=== PATIENT | female | born 1975 | race Caucasian/White ===

== ENCOUNTER 2020-03-18 20:40 | Emergency (ER) | payer MEDICAID, SELFPAY ==
[2020-03-18] VITALS (10 sets, daily range): BP systolic 125–158; BP diastolic 74–92; PULSE 96–109; RESP 16; TEMP 36.7; O2SAT 93–96
[2020-03-18 21:05] LABS: Bilirubin Negative (Negative); Blood Large (Negative); Clarity Sl Cloudy (Clear); Glucose >=1000 mg/dL (Negative); Ketones Negative (Negative); Leukocyte Esterase Negative (Negative); Nitrite Negative (Negative); Urobilinogen 0.2 EU/dL (Up TO 0.2); pH 5.5 (5-8)
[2020-03-18] MEDS: Normal Saline 1,000 ML 1000 ML IV (21:13)
[2020-03-18] MEDS: Ketorolac 30 MG/ML VIAL IVP (21:13)
[2020-03-18 21:17] LABS: Bacteria Negative HPF (Negative); C & S Indicated? No; Casts Negative LPF (Negative); Crystals Negative HPF (Negative); Epithelial Cells Rare HPF (Negative); Mucus Negative (Negative); RBC >50 HPF (0-2)
--- NOTE | 2020-03-18 21:19 | ED.GENADUL_ITS ---
Discharge Plan Disposition Patient Disposition: HOME Condition: Stable Discharge Details Chief Complaint: Urinary Clinical Impression: Mass of small intestine, Right kidney stone Primary Care Provider: Luisito Meadows ED Provider: Nico Tello Home Meds and New Rx's Prescriptions: New tamsulosin [Flomax] 0.4 mg capsule 0.4 mg PO DAILY 7 Days Qty: 7 RF: 0 Continued gabapentin 600 mg Tablet 600 mg PO BID RF: 0 simvastatin 10 mg Tablet 10 mg PO DAILY RF: 0 aspirin [Aspirin Low Dose] 81 mg Tablet,Delayed Release (Dr/Ec) 81 mg PO DAILY RF: 0 lisinopril 5 mg Tablet 5 mg PO DAILY RF: 0 metformin 500 mg Tablet Extended Release 24 Hr 500 mg PO BID RF: 0 Discharge Instructions Instructions: Kidney Stones (ED) Additional Instructions: At this time you have a large kidney stone. There is no signs of infection, your pain appears to be well controlled, your labs are very encouraging. However due to the size of the kidney stone it may not pass on its own. Please follow-up closely with urology. Please take Tylenol and Motrin as needed for pain. Please take the Flomax as directed to help the kidney stone pass. You also have evidence of a small mass in your small intestines. There is a chance that this is cancer. It is important that you follow-up very closely with surgery. Please contact Dr. Coto's office in the morning to discuss this follow-up date. If you notice any worsening of your symptoms, or any new symptoms such as vomiting, diarrhea, fever, chills, shortness of breath, chest pain, numbness, weakness, or fainting , please return immediately to the emergency department for reevaluation. Please follow up with your primary care provider as soon as possible for reassessment and reevaluation. As always, it was a pleasure participating in your medical care today. It is extremely important that you follow-up with Dr. Coto at the office here at the hospital at 9am on Monday the . DO NOT MISS THIS APPOINTMENT. Referrals: Blane Monique MD [ [facility] STAFF PHYSICIAN] - Leah Coto DO [OSTEOPATHIC DOCTOR] - Discharge Data Discharge Date/Time-TO BE ENTERED AT DEPARTURE: 03/18/20 23:32 Medical Decision Making 45-year-old female with a past medical history of ectopic , cholecystectomy, type 2 diabetes on metformin, who presents today for evaluation of left-sided flank pain, epigastric bloating, and hematuria. Symptoms have been present for the last 2 days. She denies any chest pain or shortness of b reath. She denies any history of kidney stones. She denies any fever, chills, or dysuria. She does admit to increased urinary frequency. is at bedside who is the medical decision maker, and provides an extensive component of her history. Patient denies any other complaints at this time. She denies any tearing or ripping sensation. states that he would like aneurysm to be ruled out. Patient and have no other complaints or requests at this time. She denies any vaginal discharge. Physical exam is relatively unremarkable, mild left-sided CVA tenderness, no abdominal pain on palpation. Differential is highest for kidney stone. Less likely pyelonephritis or UTI. Unlikely to be a AAA, however per family request we will perform further evaluation for this as well. CT scan will be ordered as it is to evaluate for kidney stone, which will evaluate for any aortic etiology. We will treat the patient's pain, monitor closely and reassess. 11:[address] imaging has returned, patient demonstrates a 12 to 13 mm irregular calcified stone seen at the level of the right renal pelvic junction. Mild prominence of the right renal pelvis, no severe hydronephrosis. Urinalysis shows evidence of hematuria but no evidence of infection. No elevation in white count, bandemia or left shift. Renal function otherwise stable. Patient's pain is notably well controlled, she has no additional pain symptoms. In addition to this there is evidence of abnormal dilatation of mucosal thickening involves the third portion of the duodenum with an apparent intramural mucosal mass identified. Concern for this mass. Did contact Dr. Coto of surgery, she reviewed the images. She recommends close follow-up on Monday for prompt reassessment. And suspected EGD on Monday. The patient and her currently do not have a phone, however I went over in significant detail this appointment time at 9 AM, as well as the location of the office, and the critical importance of this important follow-up and reassessment. They demonstrate clear understanding. The patient has tolerated p.o. well here, she has no pain and is in no acute distress. With no signs of obstruction or inability to pass food in conjunction with her continued demonstration of regular bowel movements, no blood in her stool, or other components, the patient is stable for discharge. I had a long and thorough discussion with the patient, her , about reasons for which to promptly return, I availability all night long for any over the phone consult, or any questions they might have. Patient will be discharged with close follow-up. We will place a referral also for Dr. Monique for assessment as the stone is large, and the patient may need stent and or radioablation. Discussed red flags which to return. I have extensively reviewed the treatment plan and discharge instructions with the patient. I have addressed all patient concerns at this time. The patient was made aware of what symptoms to monitor for that would warrant a return to the emergency department. Discussed the plan with the patient, they demonstrate verbal understanding and agreement with our assessment and plan at this time. FINDINGS: Lungs: Lung bases are clear and heart size is normal. No pleural or pericardial effusions are detected. Liver: Trnia's lobe with inferior extension of the parenchyma of the right hepatic lobe below the level of the lower pole of the right kidney is an anatomic variation. Hepatic steatosis is noted and no focal liver lesions are detected. Gallbladder and bile ducts: Prior cholecystectomy Pancreas: The Pancreas: Normal. No ductal dilation. Spleen: Normal. No splenomegaly. Adrenals: Normal. No mass. Kidneys and ureters: Kidneys show bilateral excretion of contrast material without renal mass or significant hydronephrosis. There is mild asymmetric prominence of the right renal pelvis and a 12-13 mm irregular calcified stone is seen at the level of the right ureteropelvic junction. No additional renal calculi are detected. The Stomach and bowel: There is abnormal dilatation and mucosal thickening involving the 3rd portion the duodenum with question of a intraluminal mucosal mass (see image 51, series 10). No other pathologically dilated segments of large or small bowel detected. Intraperitoneal space: Unremarkable. No free air. No significant fluid collection. Stomach and bowel: Normal. No obstruction. No mucosal thickening. Intraperitoneal space: Unremarkable. No free air. No significant fluid collection. Lymph nodes: Unremarkable. No enlarged lymph nodes. Vasculature: Unremarkable. No abdominal aortic aneurysm. Bladder: Unremarkable. Reproductive: Unremarkable. Bones/joints: Bridging syndesmophytes are noted along posterior disc space margins at mid to upper lumbar levels with no acute osseous lesions detected. Soft tissues: Unremarkable. IMPRESSION: 1. A 12-13 mm irregular calcified stone is seen at the level of the right ureteropelvic junction associated with mild asymmetric prominence of the right renal pelvis. 2. Abnormal dilatation and mucosal thickening involves the 3rd portion the duodenum with an apparent intraluminal mucosal mass identified as detailed above. Gastroenterology consult is suggested for further evaluation. Thank you for allowing us to participate in the care of your patient. Dictated and Authenticated by: Immanuel Lancaster MD 03/18/2020 10:53 PM Eastern Time ([place] & [place]) HPI General Date/Time Provider Initiated Documentation: 03/18/20 20:44 . HPI Narrative: 45-year-old female with a past medical history of ectopic , cholecystectomy, type 2 diabetes on metformin, who presents today for evaluation of left-sided flank pain, epigastric bloating, and hematuria. Symptoms have been present for the last 2 days. She denies any chest pain or shortness of breath. She denies any history of kidney stones. She denies any fever, chills, or dysuria. She does admit to increased urinary frequency. is at bedside who is the medical decision maker, and provides an extensive component of her history. Patient denies any other complaints at this time. She denies any tearing or ripping sensation. states that he would like aneurysm to be ruled out. Patient and have no other complaints or requests at this time. She denies any vaginal discharge. Related Data Home Medications Medication Instructions Recorded Confirmed aspirin [Aspirin Low Dose] 81 mg PO DAILY 03/18/20 03/18/20 gabapentin 600 mg PO BID 03/18/20 03/18/20 lisinopril 5 mg PO DAILY 03/18/20 03/18/20 metformin 500 mg PO BID 03/18/20 03/18/20 simvastatin 10 mg PO DAILY 03/18/20 03/18/20 tamsulosin [Flomax] 0.4 mg PO DAILY 7 Days #7 cap 03/18/20 Previous Rx's Medication Instructions Recorded tamsulosin [Flomax] 0.4 mg PO DAILY 7 Days #7 cap 03/18/20 Allergies Allergy/AdvReac Type Severity Reaction Status Date / Time insulin lispro AdvReac Diarrhea Unverified 03/18/20 21:23 [From Humalog U-100 Insulin] mushroom AdvReac Diarrhea Unverified 03/18/20 20:47 General Stated Complaint: Urinary MARVEL: 3 Review of Systems All systems reviewed & are unremarkable except as noted in HPI and below PFSH Medical History Diabetes mellitus (Chronic) High cholesterol (Chronic) Surgical History History of cholecystectomy (Chronic) History of tubal ligation (Chronic) Social History Smoking/Tobacco Use Status: Never Alcohol Intake: current Alcohol Intake frequency: holidays/special occasions only Drug use: Rarely Substance use type: marijuana Do you feel safe at home: Yes Do you feel safe in your relationship?: Yes Exam Narrative Exam Narrative: 1.Const: Well-nourished, Well-developed, appearing stated age 2.Eyes: PERRL, no conjunctival injection, and symmetrical lids. 3.ENT: Atraumatic external nose and ears. Moist MM. Neck: Symmetric, trachea midline, No thyromegaly. 4.CVS: +S1/S2, No murmurs or gallops. Peripheral pulses 2+ and equal in all extremities. Brisk capillary refill in all extremities. 5.RESP: Unlabored respiratory effort. Clear to auscultation bilaterally. No wheezes rales or rhonchi 6.GI: Soft, Nontender/Nondistended, no reproducible tenderness in the left upper left lower right upper right lower abdominal quadrants. Mild left CVA tenderness. No pelvic tenderness on palpation. No hepatosplenomegaly. No guarding or rebound. 7.MSK: Normocephalic/Atraumatic, Extremities w/o deformity or ttp No cyanosis or clubbing, Normal movement of all extremities 8.Skin: Warm, Dry. No rashes or lesions. 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 Sensation grossly intact, no focal neurologic deficits. 10.Psych: (AAO) x3. Appropriate mood and affect Course Vital Signs Vital signs: Vital Signs Temperature 36.7 C 03/18/20 20:44 Pulse 109 H 03/18/20 20:44 Respiratory Rate 16 03/18/20 20:44 Blood Pressure 158/88 H 03/18/20 20:44 Pulse Oximetry 96 03/18/20 20:44 Temperature 36.7 C 03/18/20 20:44 Temperature Source Temporal Artery Scan 03/18/20 20:44 Pulse 109 H 03/18/20 20:44 Respiratory Rate 16 03/18/20 20:44 Blood Pressure 158/88 H 03/18/20 20:44 Blood Pressure Position Sitting 03/18/20 20:44 Pulse Oximetry 96 03/18/20 20:44 Oxygen Delivery Method Room Air 03/18/20 20:44 Oxygen Flow Rate 0 03/18/20 20:44 Pain Level 2 03/18/20 21:13 Lab/Test Results Lab/Test Results: Laboratory Tests Range/Units 03/18/20 20:58 Urine Color (Yellow) [place] Urine Clarity (Clear) Sl cloudy Urine pH (5-8) 5.5 Ur Specific [place] (1.005-1.025) 1.010 Urine Protein (Negative) mg/dL Negative Urine Ketones (Negative) mg/dL Negative Urine Blood (Negative) Large H Urine Nitrite (Negative) Negative Urine Bilirubin (Negative) Negative Urine Urobilinogen (Up TO 0.2) EU/dL 0.2 Ur Leukocyte Esterase (Negative) Negative Urine RBC (0-2) HPF >50 H Urine WBC (0-5) HPF 3-5 Ur Epithelial Cells (Negative) HPF Rare Urine Crystals (Negative) HPF Negative Urine Bacteria (Negative) HPF Negative Urine Casts (Negative) LPF Negative Urine Mucus (Negative) Negative Ur Culture Indicated? No Urine Glucose (Negative) mg/dL >=1000 H
[2020-03-18 21:22] LABS: Abs Immature Grans 0.02 k/cumm (0.0-0.09); Absolute Basophil Count 0.04 k/cumm (0.0-0.2); Absolute Lymphocyte Count 3.06 k/cumm (1.2-3.4); Absolute Monocyte Count 0.46 k/cumm (0.11-0.7); Absolute Neutrophil Count 5.09 k/cumm (1.2-6.7); Basophils % 0.4; Eosinophils % 4.4; HCT 40.6 % (36.0-46.0); HGB 13.8 g/dL (12.0-15.5); Immature Grans % 0.2 %; Lymphocytes % 33.7; Mean Corpuscular Volume 85.3 fL (80-95); Mean Platelet Volume 9.3 fL (8.0-11.0); Monocytes % 5.1; Neutrophils % 56.2; Platelet Count 309 x1000/uL (130-400); RBC 4.76 m/cumm (4.00-5.20); White Blood Cell Count 9.07 k/cumm (4.4-10.8)
[2020-03-18 21:36] LABS: ALT 33 U/L (14-59); Albumin 3.6 g/dL (3.4-5.0); Alkaline Phosphatase 109 U/L (46-116); Anion Gap 15.7 mmol/L (3-11); BUN 17 mg/dL (7-18); Bilirubin, Total 0.3 mg/dL (0.2-1.0); CO2 21.3 mmol/L (21.0-32.0); CREATININE 0.88 mg/dL (0.55-1.02); Calcium 9.2 mg/dL (8.5-10.1); Chloride 98 mmol/L (98-107); Glucose 432 mg/dL (74-106); Lipase 176 U/L (73-393); Potassium 4.5 mmol/L (3.5-5.1); Sodium 135 mmol/L (136-145); Total Protein 7.6 g/dL (6.4-8.2)
[2020-03-18 21:59] LABS: AST 9 U/L (15-37)
[2020-03-18] MEDS: Normal Saline - Diluent 50 ML VIAL IV (22:09)
[2020-03-18] MEDS: Omnipaque 350 MG/ML 100 ML BTL IJ (22:09)
--- NOTE | 2020-03-18 22:15 | DI.CT_ITS ---
EXAM: CT ABDOMEN PELVIS WO/W CLINICAL HISTORY: left flank pain w/ hematuria and epigastric pain TECHNIQUE: Imaging Protocol: Axial computed tomography images with coronal and sagittal reformatted images were created and reviewed CONTRAST MATERIAL: Intravenous: Omnipaque 350 Contrast volume:100 mL Oral: No COMPARISON: No exams were available for comparison FINDINGS: ABDOMEN: Lung Bases: Normal where visualized. Liver: Fatty infiltration. 23 cm in length. No measurable mass. Portal, Superior Mesenteric, and Splenic Veins: Unremarkable. Gallbladder and Biliary Tract: Status post cholecystectomy. No biliary ductal dilatation. Pancreas: Normal density, no abnormal calcifications or inflammatory process. Spleen: Normal. Adrenals: No masses seen. Kidneys: Normal size, contour and axis. There is a 0.2 point cm calculus at the right ureteral pelvic junction with mild prominence of the right renal pelvis. There is a 2 mm nonobstructing stone in th e upper pole of the right kidney. No masses seen. Abdominal Aorta: Abdominal portion non-dilated. Atherosclerosis. Bowel: No obstruction or bowel wall thickening. No evidence of acute appendicitis. There is dilatati on of the 3rd portion of the duodenum. There appears to be an intraluminal mucosal mass in the 3rd p ortion of the duodenum (series 10, image 51). Peritoneal Cavity: No ascites, collection or mesenteric inflammatory response. Lymph Nodes: Within normal limits. Bones: Degenerative changes. Soft Tissues: Unremarkable. PELVIS: Bladder: Symmetric distention, no gross wall thickening. Reproductive Organs: Unremarkable as visualized. Lymph Nodes: Within normal limits. Bones: Degenerative changes. IMPRESSION: 1. 1.2 cm stone at the right UPJ with mild prominence of the right renal pelvis. 2. Right nephrolithiasis. 3. Question of an intraluminal mucosal mass in the 3rd portion of the duodenum. Gastroenterology con sult is recommended. Follow-up with barium upper GI or upper endoscopy should be considered. RADIATION DOSE DELIVERED: Total DLP Total DLP DATA REPOSITORY: All CT scans at this facility are submitted to the National Radiology Data Registry (NRDR) Dose Index Registry (DIR) with the [employer] (A[employer]). RADIATION OPTIMIZATION: All CT scans at this facility use at least one of these dose optimization te chniques: automated exposure control; mA and/or kV adjustment per patient size (includes targeted exa ms where dose is matched to clinical indication); or iterative reconstruction.
--- NOTE | 2020-03-18 22:53 | DI.VRAD_ITS ---
Addendum created by Immanuel Lancaster MD on 03/18/2020 10:53:24 PM EDT THIS REPORT CONTAINS FINDINGS THAT MAY BE CRITICAL TO PATIENT CARE. The findings were verbally communicated via telephone conference with MICHELLE CASILLAS at 10:53 PM EDT on 03/18/2020. The findings were acknowledged and understood. Initial report created on 03/18/2020 10:53:04 PM EDT PROCEDURE INFORMATION: Exam: CT Abdomen And Pelvis Without And With Contrast; Urography Exam date and time: 03/18/2020 8:54 PM Age: 45 years old Clinical indication: Abdominal pain; Prior surgery; Surgery date: 6+ months; Surgery type: Gallbladder removed years ago; Patient HX: Patient sts left sided flank pain, gross hematuria with a history of kidney stones about 7 yrs ago. TECHNIQUE: Imaging protocol: Computed tomography of the abdomen and pelvis without and with intravenous contrast. Exam focused on the kidneys and ureters. Radiation optimization: All CT scans at this facility use at least one of these dose optimization techniques: automated exposure control; mA and/or kV adjustment per patient size (includes targeted exams where dose is matched to clinical indication); or iterative reconstruction. Contrast material: OMNIPAQUE 350; Contrast volume: 100 ml; Contrast route: INTRAVENOUS (IV); COMPARISON: No relevant prior studies available. FINDINGS: Lungs: Lung bases are clear and heart size is normal. No pleural or pericardial effusions are detected. Liver: Trina's lobe with inferior extension of the parenchyma of the right hepatic lobe below the level of the lower pole of the right kidney is an anatomic variation. Hepatic steatosis is noted and no focal liver lesions are detected. Gallbladder and bile ducts: Prior cholecystectomy Pancreas: The Pancreas: Normal. No ductal dilation. Spleen: Normal. No splenomegaly. Adrenals: Normal. No mass. Kidneys and ureters: Kidneys show bilateral excretion of contrast material without renal mass or significant hydronephrosis. There is mild asymmetric prominence of the right renal pelvis and a 12-13 mm irregular calcified stone is seen at the level of the right ureteropelvic junction. No additional renal calculi are detected. The Stomach and bowel: There is abnormal dilatation and mucosal thickening involving the 3rd portion the duodenum with question of a intraluminal mucosal mass (see image 51, series 10). No other pathologically dilated segments of large or small bowel detected. Intraperitoneal space: Unremarkable. No free air. No significant fluid collection. Stomach and bowel: Normal. No obstruction. No mucosal thickening. Intraperitoneal space: Unremarkable. No free air. No significant fluid collection. Lymph nodes: Unremarkable. No enlarged lymph nodes. Vasculature: Unremarkable. No abdominal aortic aneurysm. Bladder: Unremarkable. Reproductive: Unremarkable. Bones/joints: Bridging syndesmophytes are noted along posterior disc space margins at mid to upper lumbar levels with no acute osseous lesions detected. Soft tissues: Unremarkable. IMPRESSION: 1. A 12-13 mm irregular calcified stone is seen at the level of the right ureteropelvic junction associated with mild asymmetric prominence of the right renal pelvis. 2. Abnormal dilatation and mucosal thickening involves the 3rd portion the duodenum with an apparent intraluminal mucosal mass identified as detailed above. Gastroenterology consult is suggested for further evaluation. Dictated and Authenticated by: Immanuel Lancaster MD. Ordering:ANNETTA Walsh MD
[2020-03-18] MEDS: Tamsulosin 0.4 MG CAPCR PO (23:23)
--- NOTE | 2020-03-18 23:40 | NUR.NOTE ---
Nursing Note: FAXED TO UROLOGY. REFERRAL TO UROLOGY FOR KIDNEY STONES. 03/18/2020 [id number]
--- NOTE | 2020-03-18 23:44 | NUR.NOTE ---
Nursing Note:FAXED TO SURGICAL- SMALL INTESTINE MASS. 03/18/2020 [id number] KW
== END 2020-03-18 23:32 | disposition home or self-care (01) ==
PROVIDERS: Emergency Provider Student in an Organized Health Care Education/Training Program; PCP Internal Medicine
DX: N20.2 Calculus of kidney with calculus of ureter (principal); R93.3 Abnormal findings on diagnostic imaging of other parts of digestive tract; R31.9 Hematuria, unspecified; R10.13 Epigastric pain; E11.9 Type 2 diabetes mellitus without complications; Z79.84 Long term (current) use of oral hypoglycemic drugs
CPT/HCPCS: 36415; 80053; 81025; 83690; 96360; 96361; 96374; 99285; 74178; 81003; 81015; 85025; J1885; J3490